=== PATIENT | male | born 1955 | race Two or more races ===

== ENCOUNTER 2020-09-25 20:27 | Emergency (ER) | payer SELFPAY ==
[~2020-09-25] VITALS: Ht 180.3 cm; Wt 91.6 kg
--- NOTE | 2020-09-25 20:40 | NUR ---
pt bibra c/o hypotension 84/52 and near syncope. Pt aaox4 breathing evenly and unlabored. pt states, "I did not faint, he had some marijuana and felt hot and then sat down." Pt attached to monitor and pox. Upon assessment pt bp 96/63. MD at bedside. Pt given call light within reach
[2020-09-25] MEDS ORDERED: IV NS 0.9% 1,000 ML BAG IV ONE (21:00)
--- NOTE | 2020-09-25 21:11 | NUR ---
pt is refusing blood draw and xray. aware
--- NOTE | 2020-09-25 21:26 | NUR ---
IV removed. Catheter intact and site benign. Pressure and 4x4 applied to site. No bleeding noted.
--- NOTE | 2020-09-25 21:26 | NUR ---
Patient does not wish to proceed with medical care recommended by Dr. Davila. Patient given information related to possible complications, up to and including , which could occur as a result of leaving the hospital at this time. Patient verbalizes understanding of risks involved due to leaving against medical advice. Patient has signed AMA form.
[2020-09-25 22:28] VITALS: BP 114/68
== END 2020-09-25 21:30 | disposition left against medical advice (07) ==
LOC: ER 20:29
DX: R55 Syncope and collapse (principal); I95.9 Hypotension, unspecified; I10 Essential (primary) hypertension; E11.9 Type 2 diabetes mellitus without complications; F12.90 Cannabis use, unspecified, uncomplicated
CPT/HCPCS: 93005; 96360; 99283; J7030